=== PATIENT | male | born 1965 | race African-American/Black ===

== ENCOUNTER 2017-03-20 02:22 | Emergency (ER) | payer BC ==
[2017-03-20] MEDS ORDERED: Albuterol/Ipratropium 3.0-0.5 MG/3 ML Neb Soln NEB ONE (02:45)
--- NOTE | 2017-03-20 02:51 | EDM.PDOC ---
ED HPI GENERAL MEDICAL PROBLEM - General Chief Complaint: Respiratory Problem Stated Complaint: HARD TIME BREATHING Time Seen by Provider: 03/20/17 02:24 - History of Present Illness INITIAL COMMENTS - FREE TEXT/NARRATIVE: HISTORY AND PHYSICAL: History of present illness: The patient is a 52-year-old male with a history of allergic bronchitis when he is exposed to animal dander and certain other triggers and who presents today with feeling shortness of breath/trouble taking a deep breath, congestion his chest cough runny nose increased sneezing and a slight sore throat that started after coughing. The patient said he was in [place] a month and half ago and was exposed to a lot of animal dander and had symptoms for which he treated and then he came back here for work and was doing much better until the last 1-2 days. He is around a lot of ill people and is concerned about more of an infection but says that the symptoms he is experiencing tonight are very similar to his asthmatic bronchitis. He normally will be treated with inhalers and steroids but he does not have a local provider. He has not had fevers nausea vomiting abdominal pain chest pain and is only short of breath because of the coughing. He is eating and drinking normally. Review of systems: As per history of present illness and below otherwise all systems reviewed and negative. Past medical history: As per history of present illness and as reviewed below otherwise noncontributory. Surgical history: As per history of present illness and as reviewed below otherwise noncontributory. Social history: No reported history of drug or alcohol abuse. Family history: As per history of present illness and as reviewed below otherwise noncontributory. Physical exam: General: Well-developed well-nourished male who is nontoxic and not breathless on evaluation but has slight nasal quality to voice. The patient did have coughing on my evaluation which was loose and bronchitic. Vital signs have been noted by me HEENT: Atraumatic, normocephalic, pupils reactive, negative for conjunctival pallor or scleral icterus, mucous membranes moist, throat clear of exudates but there is erythema, there is no cervical adenopathy or nuchal rigidity, neck supple, nontender, trachea midline. Lungs: Clear to auscultation with an occasional coarse breath sound but no worker breathing, breath sounds equal bilaterally, chest nontender. Heart: S1S2, regular rate and rhythm no overt murmurs Abdomen: Soft, nondistended, nontender. NABS Pelvis: Deferred Genitourinary: Deferred. Rectal: Deferred. Extremities: Atraumatic, negative for cords or calf pain. Neurovascular unremarkable. Neuro: Awake, alert, oriented. Cranial nerves II through XII unremarkable. Cerebellum unremarkable. Motor and sensory unremarkable throughout. Exam nonfocal. Diagnostics: Influenza rapid strep Therapeutics: DuoNeb, spacer and spacer teaching Impression: Acute bronchitis Definitive disposition and diagnosis as appropriate pending reevaluation and review of above. headache Pain Score (Numeric/FACES): 6 - Related Data Allergies Allergy/AdvReac Type Severity Reaction Status Date / Time No Known Allergies Allergy Verified 03/20/17 02:31 Home Meds: Home Meds . [No Known Home Meds] 03/20/17 [History] Past Medical History HEENT History: Reports: None Cardiovascular History: Reports: None Respiratory History: Reports: None Gastrointestinal History: Reports: None Genitourinary History: Reports: None Musculoskeletal History: Reports: None Neurological History: Reports: None Psychiatric History: Reports: None Endocrine/Metabolic History: Reports: None Hematologic History: Reports: None Immunologic History: Reports: None Oncologic (Cancer) History: Reports: None Dermatologic History: Reports: None - Infectious Disease History Infectious Disease History: Reports: None - Past Surgical History Head Surgeries/Procedures: Reports: None Social & Family History - Family History Family Medical History: Noncontributory - Tobacco Use Smoking Status *Q: Never Smoker - Caffeine Use Caffeine Use: Reports: Tea - Recreational Drug Use Recreational Drug Use: No ED ROS GENERAL - Review of Systems Review Of Systems: ROS reveals no pertinent complaints other than HPI. ED EXAM, GENERAL - Physical Exam Exam: See Below (See dictation) Course - Vital Signs Last Recorded V/S: Last Vital Signs Temp 37.2 C 03/20/17 02:31 Pulse 95 03/20/17 02:31 Resp 18 03/20/17 02:31 BP 141/82 H 03/20/17 02:31 Pulse Ox 96 03/20/17 02:31 - Orders/Labs/Meds Orders: Active Orders 24 hr Category Date Time Status RT Aerosol Therapy [RC] ASDIRECTED Care 03/20/17 02:45 Active CULTURE STREP A CONFIRMATION [RM] Stat Lab 03/20/17 02:45 Results STREP SCRN A RAPID W CULT CONF [RM] Stat Lab 03/20/17 02:45 Results Meds: Medications Discontinued Medications Generic Name Dose Route Start Last Admin Trade Name Alicia PRN Reason Stop Dose Admin Albuterol/Ipratropium 3 ml 03/20/17 02:45 03/20/17 03:00 Duoneb 3.0-0.5 Mg/3 Ml NEB 03/20/17 02:46 3 ml ONETIME ONE Administration Departure - Departure Time of Disposition: 03:22 Disposition: Home, Self-Care 01 Condition: Good Clinical Impression: Acute bronchitis Qualifiers: Bronchitis organism: unspecified organism Qualified Code(s): J20.9 - Acute bronchitis, unspecified - Discharge Information Referrals: PCP,None [Primary Care Provider] - Forms: ED Department Discharge Additional Instructions: The following information is given to patients seen in the emergency department who are being discharged to home. This information is to outline your options for follow-up care. We provide all patients seen in our emergency department with a follow-up referral. The need for follow-up, as well as the timing and circumstances, are variable depending upon the specifics of your emergency department visit. If you don't have a primary care physician on staff, we will provide you with a referral. We always advise you to contact your personal physician following an emergency department visit to inform them of the circumstance of the visit and for follow-up with them and/or the need for any referrals to a consulting specialist. The emergency department will also refer you to a specialist when appropriate. This referral assures that you have the opportunity for followup care with a specialist. All of these measure are taken in an effort to provide you with optimal care, which includes your followup. Under all circumstances we always encourage you to contact your private physician who remains a resource for coordinating your care. When calling for followup care, please make the office aware that this follow-up is from your recent emergency room visit. If for any reason you are refused follow-up, please contact the [facility] emergency department at and ask to speak to the emergency department charge nurse. [facility] Primary care- [place] [address] Push hydration and try to avoid extreme cold as well as other allergens just and other triggers for the cough. Use albuterol inhaler with spacer you have been given as directed. Take prednisone as directed. Use [id number] cough medicine during the day and take the stronger cough medicine only at times you are at home. Please also taken [id number] antihistamine for the next 10- 14 days, Leydi or Claritin and Benadryl at sleep time. Please call and schedule a follow-up appointment in our clinic in the next few days and return to ER as needed and as discussed. You have been given albuterol inhaler, prednisone, Phenergan with codeine from [facility] - My Orders Last 24 Hours: My Active Orders 03/20/17 02:45 RT Aerosol Therapy [RC] ASDIRECTED CULTURE STREP A CONFIRMATION [RM] Stat STREP SCRN A RAPID W CULT CONF [RM] Stat - Assessment/Plan Last 24 Hours: My Active Orders 03/20/17 02:45 RT Aerosol Therapy [RC] ASDIRECTED CULTURE STREP A CONFIRMATION [RM] Stat STREP SCRN A RAPID W CULT CONF [RM] Stat
[2017-03-20] MEDS ORDERED: Albuterol/Ipratropium 3.0-0.5 MG/3 ML Neb Soln ONE (02:57)
== END 2017-03-20 03:42 | disposition home or self-care (01) ==
LOC: MW.ED 02:22
DX: J20.9 Acute bronchitis, unspecified (principal)
CPT/HCPCS: 87081; 87804; 87880; 94640; 99283; 99283-25